=== PATIENT | male | born 1970 | race Caucasian/White ===

== ENCOUNTER → 2022-01-11 | Day surgery (SDC) | payer OTHER ==
[~2022-01-11] VITALS: Ht 180.3 cm; Wt 94.3 kg
[~2022-01-11] MED LIST: ALLEGRA ALLERG180 MG PO; CLARITIN10 MG PO
== END | disposition home or self-care (01) ==
LOC: FAS 09:30
DX: Z12.11 Encounter for screening for malignant neoplasm of colon (principal)
CPT/HCPCS: J2250; J2704; J7120